=== PATIENT | male | born 1980 | race Two or more races ===

== ENCOUNTER 2017-04-17 17:11 | Observation (INO) | payer MEDICARE, OTHER ==
[~2017-04-17] VITALS: Ht 172.7 cm; Wt 86.2 kg
[2017-04-17 18:38] LABS: Basophils # (auto) 0.1 uL; Basophils % (auto) 1.5 % (0.0-2.0); CONDITION Y; Eosinophils # (auto) 0.1 uL; Eosinophils % (auto) 1.6 % (0.0-7.0); Hemoglobin 16.5 g/dL (13.5-17.5); Lymphocytes # (auto) 2.1 uL; Lymphocytes % (auto) 30.5 % (10.0-50.0); Mean Corpuscular Hemoglobin 29.4 pg (28.0-32.0); Mean Corpuscular Hgb Conc. 33.7 g/dL (32.0-36.0); Mean Corpuscular Volume 87.3 fL (80.0-100.0); Mean Platelet Volume 10.9 fL (7.4-10.4); Monocytes # (auto) 0.7 uL; Monocytes % (auto) 9.6 % (0.0-12.0); Neutrophils # (auto) 3.9 uL; Neutrophils % (auto) 56.8 % (37.0-80.0); Platelet Count (auto) 230 10^3/uL (140-450); Red Cell Distribution Width 13.9 % (11.6-16.0); SUSPECT SEE PRINTOUT; White Blood Cell 6.8 10^3/uL (4.4-10.8)
[2017-04-17 18:58] LABS: Albumin 3.4 g/dL (3.4-5.0); BUN/Creatinine Ratio 8.8; Bilirubin, Total 0.2 mg/dL (0.2-1.0); Calcium 8.6 mg/dL (8.5-10.1); Magnesium 2.5 mg/dL (1.6-2.6); Potassium 3.9 mmol/L (3.5-5.1)
[2017-04-17] MEDS ORDERED: ASPirin 81 mg TAB PO ONE (20:30)
[2017-04-17] MEDS ORDERED: cloNIDine HCL 0.1 MG TAB PO ONE (20:30)
[2017-04-17 21:02] LABS: INR 0.94 (0.9-1.15); Partial Thromboplastin Time 27.4 sec (22.64-33.71); Prothrombin Time 10.2 sec (9.37-12.3)
[2017-04-17 22:05] VITALS: BP 160/103
[2017-04-17 22:20] LABS: Urine Bilirubin Negative (Negative); Urine Blood Negative /uL (Negative); Urine Ca Oxalate Crystal FEW (None Seen); Urine Color Yellow (Yellow); Urine Glucose Normal (Normal); Urine Ketone Negative (Negative); Urine Mucus FEW (None Seen); Urine Nitrite Negative (Negative); Urine RBC 5 /hpf (0 - 3); Urine Squamous Epithelial Cell FEW /hpf (<5); Urine Urobilinogen Normal (Negative)
[2017-04-17] MEDS ORDERED: TRIAMTERENE/HCTZ 37.5/25 MG CAP PO ONE (23:30)
== END 2017-04-17 23:38 | disposition home or self-care (01) | DRG 313 ==
LOC: EDBD 17:11 → ER 17:17 → OVERFLOW 20:30 → ER 23:38
PROVIDERS: ADMIT Family Medicine; ATTEND Family Medicine
DX: R07.89 Other chest pain (principal); I10 Essential (primary) hypertension; F20.9 Schizophrenia, unspecified; F32.9 Major depressive disorder, single episode, unspecified; F17.210 Nicotine dependence, cigarettes, uncomplicated
CPT/HCPCS: 36415; 71020; 80053; 80307; 81001; 83735; 84443; 84484; 85025; 85379; 85610; 85730; 93005; 99285; G0378